=== PATIENT | female | born 1960 | race Two or more races ===

== ENCOUNTER 2018-09-12 22:58 | Emergency (ER) | payer OTHER ==
[~2018-09-12] VITALS: Ht 167.6 cm; Wt 54.4 kg
[2018-09-12 23:00] VITALS: BP 119/65
--- NOTE | 2018-09-12 23:32 | NUR ---
ED Nurse Note: Patient presents with complaints of abdominal fullness when lying down, patient is anxious, tachyneic and tachycardic upon arrival.
--- NOTE | 2018-09-12 23:43 | Emergency Room Report ---
History of Present Illness General Chief Complaint: Dyspnea/Respdistress Source: Patient, Family Member Present Illness HPI This is a 58-year-old female with history of high blood pressure and reflux. She presents with chief complaint of feeling short of breath. She woke up and felt heartburn and pressure up to her neck. She felt she couldn't breathe. She has several episode vomiting. Also with chest pain. She felt nervous. Denies any fever or chills. Denies any abdominal pain. Denies any diarrhea. No exertional component. Allergies: Coded Allergies: No Known Allergies (Verified , 03/15/10) Patient History Past Medical History: see triage record, old chart reviewed, HTN Past Surgical History: other Pertinent Family History: none Social History: Denies: smoking Last Menstrual Period: n/a Now: No Immunizations: other Reviewed Nursing Documentation: PMH: Agreed; PSxH: Agreed Nursing Documentation-PMH Hx Hypertension: Yes Review of Systems Eye: Denies: eye pain, blurred vision ENT: Denies: ear pain, nose congestion, throat swelling Respiratory: Reports: shortness of breath; Denies: cough Cardiovascular: Reports: chest pain; Denies: palpitations Gastrointestinal: Denies: abdominal pain, diarrhea, nausea, vomiting Musculoskeletal: Denies: back pain, joint pain Skin: Denies: rash Neurological: Denies: headache, numbness Endocrine: Denies: increased thirst, increased urine Hematologic/Lymphatic: Denies: easy bruising All Other Systems: negative except mentioned in HPI Physical Exam Vital Signs Date Time Temp Pulse Resp B/P (MAP) Pulse Ox O2 Delivery O2 Flow Rate FiO2 09/12/18 23:00 122 26 Room Air 09/12/18 23:00 98.1 119/65 100 vitals with tachycardia Sp02 EP Interpretation: reviewed, normal General Appearance: well appearing, no apparent distress, alert Head: normocephalic, atraumatic Eyes: bilateral eye PERRL, bilateral eye EOMI ENT: hearing grossly normal, normal pharynx Neck: full range of motion, supple, no meningismus Respiratory: chest non-tender, lungs clear, normal breath sounds Cardiovascular #1: regular rate, rhythm, no murmur Gastrointestinal: normal bowel sounds, non tender, no mass, no organomegaly, no bruit, non-distended Musculoskeletal: back normal, gait/station normal, normal range of motion Psychiatric: anxious Skin: warm/dry Medical Decision Making Diagnostic Impression: Primary Impression: Dyspnea Qualified Codes: R06.00 - Dyspnea, unspecified Additional Impression: GERD (gastroesophageal reflux disease) Qualified Codes: K21.9 - Gastro-esophageal reflux disease without esophagitis ER Course Patient presents with chest pain/reflux symptoms. She also felt short of breath. No evidence of ACS, PE, dissection to name a few. Better now. We'll discharge home. She had a colonoscopy done in the past. Never had endoscopy. We'll recommend endoscopy to rule out any stricture, Larios esophagitis or H. pylori. EKG Diagnostic Results Rate: normal, tachycardiac Rhythm: NSR ST Segments: no acute changes Rhythm Strip Diag. Results EP Interpretation: yes Rate: 100 Rhythm: NSR, no PVC's, no ectopy Chest X-Ray Diagnostic Results Chest X-Ray Diagnostic Results : Chest X-Ray Ordered: Yes # of Views/Limited/Complete: 1 View Indication: Chest Pain EP Interpretation: Yes Interpretation: no consolidation, no effusion, no pneumothorax, no acute cardiopulmonary disease Impression: No acute disease Electronically Signed by: Mika Fair MD Last Vital Signs Date Time Temp Pulse Resp B/P (MAP) Pulse Ox O2 Delivery O2 Flow Rate FiO2 09/12/18 23:00 98.1 122 26 100 Room Air 09/12/18 23:00 119/65 Status: improved Disposition: HOME, SELF-CARE Condition: Stable Referrals: NOT CHOSEN IPA/,REFERRING (PCP) Additional Instructions: Follow-up with your doctor in 7 days. You may need a referral to see a medical historian for endoscopy. Return if symptom worsen. Mika Fair MD September 12, 2018 23:43
[2018-09-12] MEDS ORDERED: Pantoprazole Inj IVP ONE (23:45)
[2018-09-12] MEDS ORDERED: LORazepam Inj 2mg/ml 1ml IV ONE (23:45)
[2018-09-12 23:56] LABS: BASOPHILS % (AUTO) 1.5 % (0.0-2.0); EOSINOPHILS % (AUTO) 1.1 % (0.0-3.0); HEMATOCRIT 41.5 % (37.0-47.0); HEMOGLOBIN 14.3 G/DL (12.0-16.0); LYMPHOCYTES % (AUTO) 24.8 % (20.0-45.0); MEAN CORPUSCULAR VOLUME 86 FL (80-99); MONOCYTES % (AUTO) 7.2 % (1.0-10.0); NEUTROPHILS % (AUTO) 65.6 % (45.0-75.0); PLATELET COUNT 279 K/UL (150-450); RED BLOOD COUNT 4.85 M/UL (4.20-5.40); RED CELL DISTRIBUTION WIDTH 10.9 % (11.6-14.8); WHITE BLOOD COUNT 9.3 K/UL (4.8-10.8)
[2018-09-13 00:07] LABS: ANION GAP 16 mmol/L (5-15); BLOOD UREA NITROGEN 24 mg/dL (7-18); CALCIUM 10.3 MG/DL (8.5-10.1); CARBON DIOXIDE 24 MMOL/L (21-32); CHLORIDE 99 MMOL/L (98-107); CREATININE 1.1 MG/DL (0.55-1.30); POTASSIUM 3.9 MMOL/L (3.5-5.1); SODIUM 139 MMOL/L (136-145)
[2018-09-13 00:16] VITALS: BP 118/69
[2018-09-13 00:20] LABS: ALANINE AMINOTRANSFERASE 25 U/L (12-78); ALBUMIN 4.3 G/DL (3.4-5.0); ALBUMIN/GLOBULIN RATIO 1.1 (1.0-2.7); ALKALINE PHOSPHATASE 159 U/L (46-116); ASPARTATE AMINO TRANSFERASE 15 U/L (15-37); BILIRUBIN,TOTAL 0.2 MG/DL (0.2-1.0); CKMB 0.6 NG/ML (0.0-3.6); CREATINE KINASE 86 U/L (26-308)
--- NOTE | 2018-09-13 00:34 | NUR ---
ED Nurse Note: patientl resting with at bedside. Patient reports chest, EKG rendered.
[2018-09-13 00:58] LABS: APPEARANCE,URINE CLEAR; BILIRUBIN, URINE NEGATIVE (NEGATIVE); COLOR,URINE PALE YELLOW; GLUCOSE, URINE (UA) NEGATIVE (NEGATIVE); KETONES,URINE NEGATIVE (NEGATIVE); LEUKOCYTE ESTERASE ,URINE NEGATIVE (NEGATIVE); NITRITE,URINE NEGATIVE (NEGATIVE); PH,URINE 8 (4.5-8.0); PROTEIN,URINE NEGATIVE (NEGATIVE); UROBILINOGEN,URINE NORMAL MG/DL (0.0-1.0)
[2018-09-13 01:30] VITALS: BP 118/69
[2018-09-13] MEDS ORDERED: Lidocaine 2% Visc 15ml soln ORAL ONE (01:30)
[2018-09-13] MEDS ORDERED: Mylanta II UD 30ml ORAL ONE (01:30)
--- NOTE | 2018-09-13 01:56 | NUR ---
ED Nurse Note: Patient cleared for discharge, no s/s of acute distress. IV removed, ID band removed, patient verbalized understanding of discharge instructions. patient departed with all belongings.
--- NOTE | 2018-09-13 11:07 | Diagnostic Imaging Report ---
Indication: Chest pain Comparison: 07/29/2011 A single view chest radiograph was obtained. Findings: Cardiomediastinal appearance is within normal limits for age. The lungs are clear. Pulmonary vascularity is appropriate. The diaphragmatic contour is smooth and costophrenic angles are sharp. No pleural effusions are identified. The bones are unremarkable. Impression: No acute findings
== END 2018-09-13 01:43 | disposition home or self-care (01) ==
LOC: EMR 23:08
DX: R06.00 Dyspnea, unspecified (principal); K21.9 Gastro-esophageal reflux disease without esophagitis; I10 Essential (primary) hypertension
CPT/HCPCS: 36415; 71045; 80053; 81003; 82550; 82553; 83880; 84484; 85025; 85379; 93005; 96361; 96374; 96375; 99284; C9113

== ENCOUNTER 2018-12-24 08:32 | Day surgery (SDC) | payer OTHER ==
[~2018-12-24] VITALS: Ht 154.9 cm; Wt 63.5 kg
[2018-12-24] VITALS (10 sets, daily range): BP systolic 110–161; BP diastolic 59–81
[2018-12-24] MEDS ORDERED: LEVOTHYROXINE75 MCG ORAL (09:21)
[2018-12-24] MEDS ORDERED: BENAZEPRIL HCL40 MG ORAL (09:21)
[2018-12-24] MEDS ORDERED: OMEPRAZOLE40 M1 ORAL (09:21)
[2018-12-24] MEDS ORDERED: PAMELOR25 MG ORAL (09:21)
[2018-12-24] MEDS ORDERED: Propofol 200mg/20ml IV ONE (09:30)
[2018-12-24] MEDS ORDERED: Labetalol 5mg/ml 20ml vial IV ONE (09:30)
[2018-12-24] MEDS ORDERED: Midazolam 2mg/2ml Inj ONE (09:30)
--- NOTE | 2018-12-24 09:37 | Pre-Procedure Note/Attestation ---
Pre-Procedure Note/Attestation Complete Prior to Procedure Planned Procedure: not applicable Procedure Narrative: esophagogastroduodenoscopy and colonoscopy Indications for Procedure Pre-Operative Diagnosis: gerd, screening colon Attestation I attest that I discussed the nature of the procedure; its benefits; risks and complications; and alternatives (and the risks and benefits of such alternatives ), prior to the procedure, with the patient (or the patient's legal assisted sales representative). I attest that, if there was a reasonable possibility of needing a blood transfusion, the patient (or the patient's legal assisted sales representative) was given the [facility] standardized written summary, pursuant to the [place] Blood Safety Act ([place] Health and Safety Code # 1645, as amended). I attest that I re-evaluated the patient just prior to the surgery and that there has been no change in the patient's H&P, except as documented below: Jasbir Nettles MD Dec 24, 2018 09:37
--- NOTE | 2018-12-24 09:39 | Short Stay Surgery H&P ---
History of Present Illness History of Present Illness Chief Complaint screening colon, GERD HPI Sonia Salas is a 58 year old female who was admitted on for Gerd,Colon Screening Patient History Allergies: Coded Allergies: No Known Allergies (Verified , 03/15/10) Medication History Scheduled Benazepril Hcl* (Benazepril Hcl*), 40 MG ORAL DAILY, (Reported) Levothyroxine Sodium* (Levothyroxine Sodium*), 75 MCG ORAL DAILY, (Reported) Nortriptyline Hcl* (Pamelor*), 50 MG ORAL DAILY, (Reported) Omeprazole (Omeprazole), 40 MG ORAL DAILY, (Reported) Review of Systems Cardiovascular: Reports: no symptoms Respiratory: Reports: no symptoms Skeletal: Reports: no symptoms Gastrointestinal: Reports: gastro esophageal reflux disease Genitourinary: Reports: no symptoms Neurologic: Reports: no symptoms Endocrine: Reports: no symptoms Hematologic: Reports: no symptoms Physical Exam Vital Signs Last Vital Signs Date Time Temp Pulse Resp B/P (MAP) Pulse Ox O2 Delivery O2 Flow Rate FiO2 12/24/18 09:20 98.4 74 20 161/79 99 Room Air Skin: normal HENT: normal Heart: normal Lungs: normal Abdomen: normal Extremities: normal Plan Plan of Care esophagogastroduodenoscopy and colonoscopy Attestation Are the patient's medical conditions optimized for surgery? Attestation Response: yes Jasbir Nettles MD Dec 24, 2018 09:39
--- NOTE | 2018-12-24 10:09 | Anethesia Preoperative Eval ---
Anesthesia Pre-op PMH/ROS General Date of Evaluation: Dec 24, 2018 Time of Evaluation: 09:27 Anesthesiologist: Enrrique ASA Score: ASA 2 Mallampati Score Class I : Soft palate, uvula, fauces, pillars visible Class II: Soft palate, uvula, fauces visible Class III: Soft palate, base of uvula visible Class IV: Only hard plate visible Mallampati Classification: Class I Surgeon: Tho Diagnosis: Gerd, colon screening Surgical Procedure: EGD/Colon Anesthesia History: none Family History: no anesthesia problems Allergies: Coded Allergies: No Known Allergies (Verified , 03/15/10) Medications: see eMAR Patient NPO?: Yes NPO Date: Dec 23, 2018 NPO Time: 22:30 Past Medical History Cardiovascular: Reports: HTN, CAD Pulmonary: Denies: asthma, COPD, JOSE, other Gastrointestinal/Genitourinary: Reports: GERD Neurologic/Psychiatric: Reports: CVA - 2009 Endocrine: Reports: hypothyroidism HEENT: Denies: cataract (L), cataract (R), glaucoma, ALTURAS (L), ALTURAS (R), other Hematology/Immune: Reports: anemia Musculoskeletal/Integumentary: Reports: other - knee fractures PSxH Narrative: appendectomy 1978, s/p cholecystectomy 2009, hysterectomy, right knee replacement, colonoscopy Anesthesia Pre-op Phys. Exam Physician Exam Last Vital Signs Date Time Temp Pulse Resp B/P (MAP) Pulse Ox O2 Delivery O2 Flow Rate FiO2 12/24/18 09:20 98.4 74 20 161/79 99 Room Air Constitutional: NAD Neurologic: CN 2-12 intact Cardiovascular: RRR Respiratory: CTA Gastrointestinal: S/NT/ND Airway Exam Mallampati Score: Class I MO: full ROM: full Teeth: intact Dentures: no upper, no lower Anesthesia Pre-op A/P Labs chart reviewed Studies Pre-op Studies: EKG - NSR 64 bpm Risk Assessment & Plan Assessment: A&Ox4 Plan: MAC Status Change Before Surgery: No Pre-Antibiotics Given Within 1 Hr of Incision: No - none per surgeon Nell Osuna CRNA Dec 24, 2018 10:09
--- NOTE | 2018-12-24 10:10 | 48 Hour Post Anesthesia Eval ---
Post Anesthesia Evaluation Procedure: EGD/Colon Date of Evaluation: Dec 24, 2018 Time of Evaluation: 10:56 Blood Pressure Systolic: 138 0: 82 Pulse Rate: 84 Respiratory Rate: 20 Temperature (Fahrenheit): 97.6 O2 Sat by Pulse Oximetry: 99 Airway: patent Nausea: No Vomiting: No Pain Intensity: 0 Hydration Status: adequate Mental Status/LOC: patient returned to baseline Follow-up care needed: patient intructions given Nell Osuna CRNA Dec 24, 2018 10:10
--- NOTE | 2018-12-24 10:10 | Immediate Post-Op Evaluation ---
Immediate Post-Op Evalulation Immediate Post-Op Evalulation Procedure: EGD/Colon Date of Evaluation: Dec 24, 2018 Time of Evaluation: 10:46 IV Fluids: NSS 800ml Blood Products: 0 Estimated Blood Loss: 0 Urinary Output: 0 Blood Pressure Systolic: 136 Blood Pressure Diastolic: 81 Pulse Rate: 83 Respiratory Rate: 20 O2 Sat by Pulse Oximetry: 100 Temperature (Fahrenheit): 97.9 Pain Score (1-10): 0 Nausea: No Vomiting: No Complications none noted Patient Status: awake, reacts, patent, none Hydration Status: adequate Given Within 1 Hr of Incision: Nell Vance CRNA Dec 24, 2018 10:10
[2018-12-24] MEDS ORDERED: Hydromorphone 0.5mg/0.5ml inj IVP PRN (10:15)
[2018-12-24] MEDS ORDERED: fentaNYL 100 mcg/2 mL IV PRN (10:15)
--- NOTE | 2018-12-24 10:40 | Endoscopy Procedure Note ---
Endoscopy Procedure Note General Indication for Procedure: screening colon, GERD Procedures Performed: EGD, colonoscopy Operative Findings/Diagnosis: 2 polyps, gastritis Specimen: yes Pt Tolerated Procedure Well: Yes Estimated Blood Loss: none Anesthesia Anesthesiologist: carolyn Anesthesia: MAC Inserted Devices Implant(s) used?: No Quality Quality of Bowel Preparation: Good Did scope reach the cecum?: No Was there any complications?: No GI Core Measures 50 yrs or older w/o bx or poly: No 10yrs. F/U recommended: Yes If not recommended, why?: Above average risk 18 years or older w/prev. colo: No Jasbir Nettles MD Dec 24, 2018 10:40
[2018-12-24] MEDS ORDERED: Hydromorphone 0.5mg/0.5ml inj ONE (11:17)
--- NOTE | 2018-12-25 11:21 | Cardiology Report ---
APPROVED REPORT EKG Measurement Heart [id number] CT [id number] Normal sinus rhythm Normal ECG
--- NOTE | 2018-12-25 16:55 | Procedure Note ---
DATE OF PROCEDURE: 12/24/2018 SURGEON: Jasbir Nettles M.D. PROCEDURE: Upper endoscopy with biopsy and colonoscopy with biopsy. ANESTHESIA: Per Enrrique DAMON. INSTRUMENT: Olympus adult flexible upper endoscope and colonoscope. INDICATION: Screening colonoscopy and chronic GERD. REASON FOR PROCEDURE: The procedure, risks, benefits, and possible consequences, including hemorrhage, aspiration, perforation and infection, and alternative treatments, were explained to the patient/legal guardian by Dr. Jasbir Nettles and the patient/legal guardian understood and accepted these risks. DESCRIPTION OF PROCEDURE: After informed consent was obtained and the patient was adequately sedated, Olympus upper endoscope was advanced from mouth into the second portion of the duodenum and retroflexion was performed in the stomach. The patient had evidence of 4 to 5 cm hiatal hernia. In the stomach, there were multiple polyps, most probably fundic gland polyps, largest one about 1 cm was biopsied. The patient also had evidence of antral gastritis, which was biopsied. The rest of the examination grossly looked within normal limits. At this time, the upper endoscope was retrieved. The patient was turned over for colonoscopy. First, rectal exam was performed, which was normal. We tried three different scopes to get through this colonoscopy, first adult, then pediatric, then upper scope secondary to significant diverticulosis in the sigmoid colon. We were only able to get to the ileocecal valve. We could not get to the cecum. Quality of prep was good. The patient had two polyps, one in the rectum, one in the sigmoid, both removed with the cold biopsy forceps technique. As I mentioned, she has significant sigmoid diverticulosis. Retroflexion of the rectum showed evidence of medium-sized internal hemorrhoids. SUMMARY OF FINDINGS: 1. About 4 to 5 cm hiatal hernia with minimum distal esophagitis. 2. Gastritis, status post biopsy. 3. Multiple gastric polyps, most probably fundic gland polyps, status post biopsy of the one. 4. Significant diverticulosis in the left colon, requiring adult upper scope to get through, we only got into the ileocecal valve. 5. Two polyps removed, see above for details. 6. Internal hemorrhoids. RECOMMENDATIONS: Follow up biopsy results and treat accordingly. We recommend repeat colonoscopy in five years. Jasbir Cherri Nettles DR: AURELIANO JOB#: [id number] CC:
== END 2018-12-24 13:45 | disposition home or self-care (01) ==
LOC: GAS 08:32
DX: Z12.11 Encounter for screening for malignant neoplasm of colon (principal); K21.9 Gastro-esophageal reflux disease without esophagitis; K44.9 Diaphragmatic hernia without obstruction or gangrene; K31.7 Polyp of stomach and duodenum; K57.90 Diverticulosis of intestine, part unspecified, without perforation or abscess without bleeding; K29.50 Unspecified chronic gastritis without bleeding; D12.5 Benign neoplasm of sigmoid colon; K63.5 Polyp of colon; K64.8 Other hemorrhoids; K21.0 Gastro-esophageal reflux disease with esophagitis; Z79.899 Other long term (current) drug therapy; I11.9 Hypertensive heart disease without heart failure; Z86.73 Personal history of transient ischemic attack (TIA), and cerebral infarction without residual deficits; Z90.49 Acquired absence of other specified parts of digestive tract; Z96.651 Presence of right artificial knee joint; Z90.89 Acquired absence of other organs; E03.9 Hypothyroidism, unspecified
CPT/HCPCS: 43239; 45380; 93005; J0360; J1170; J2250; J2405; J2704; 94003; 94150